=== PATIENT | male | born 1970 | race Two or more races ===

== ENCOUNTER 2018-01-02 21:19 | Observation (INO) | payer SELFPAY ==
[2018-01-02 21:27] VITALS: BP 138/84; PULSE 95; RESP 18; TEMP 98.9; O2SAT 98
--- NOTE | 2018-01-02 21:34 | PD ---
HPI Chief Complaint: Chest Pain Time Seen by Provider: 21:32 Travel History International Travel<30 days: No Contact w/Intl Traveler<30days: No Traveled to known affect area: No History of Present Illness HPI Patient presents complaining of a substernal chest pressure radiating towards his left shoulder, associated with some chest heaviness with an onset at approximately 20 minutes prior to arrival. Currently the chest pressure is rated as an 8 out of 10, associated with some sensation of shortness of breath due to the heaviness sensation. Patient denies any alleviating or aggravating factors. Patient denies any associated factors such as fever, rash, cough, runny nose, sore throat, nausea, vomiting, diarrhea, neck pain, back pain, flank pain, abdominal pain, hematuria/urgency/frequency/dysuria. No known drug allergy Past medical history significant for syncope of unknown origin, chest pain of unknown origin, hypertension, claustrophobia. Cardiac risk factors father and grandfather family history of NE in their 50s, patient denies ever smoking. PFSH Past Medical History Heart Rhythm Problems: No Cardiac Catheterization: No Cardiovascular Problems: Yes High Cholesterol: No Chest Pain: Yes Congestive Heart Failure: No Diabetes: No Diminished Hearing: No Hypertension: Yes Immunizations Current: Yes Past Surgical History Coronary Artery Bypass Graft: No Other Surgery: Yes (LEFT WRIST, RIGHT KNEE) Family History Family Myocardial Infarction: Yes (GRANDFATHER) Social History Alcohol Use: No Tobacco Use: No Substance Use: No Allergies-Medications (Allergen,Severity, Reaction): Coded Allergies: No Known Allergies (Unverified Adverse Reaction, Unknown, 01/02/18) Reported Meds & Prescriptions Reported Meds & Active Scripts Active Reported Aspirin 81 Low Dose (Aspirin) 81 Mg Chew 81 Mg CHEW DAILY Review of Systems General / Constitutional: No: Fever Eyes: No: Visual changes HENT: No: Headaches Cardiovascular: Positive: Chest Pain or Discomfort Respiratory: No: Shortness of Breath Gastrointestinal: No: Abdominal Pain Genitourinary: No: Dysuria Musculoskeletal: No: Pain Skin: No Rash Neurologic: No: Weakness Psychiatric: No: Depression Endocrine: No: Polydipsia Hematologic/Lymphatic: No: Easy Bruising Physical Exam Narrative GENERAL: SKIN: Warm and dry. HEAD: Atraumatic. Normocephalic. EYES: Pupils equal and round. No scleral icterus. No injection or drainage. ENT: No nasal bleeding or discharge. Mucous membranes pink and moist. NECK: Trachea midline. No JVD. CARDIOVASCULAR: Regular rate and rhythm. RESPIRATORY: No accessory muscle use. Clear to auscultation. Breath sounds equal bilaterally. GASTROINTESTINAL: Abdomen soft, non-tender, nondistended. MUSCULOSKELETAL: Extremities without clubbing, cyanosis, or edema. No obvious deformities. NEUROLOGICAL: Awake and alert. No obvious cranial nerve deficits. Motor grossly within normal limits. Five out of 5 muscle strength in the arms and legs. Normal speech. PSYCHIATRIC: Appropriate mood and affect; insight and judgment normal. Data Data Last Documented VS Vital Signs Date Time Temp Pulse Resp B/P (MAP) Pulse Ox O2 Delivery O2 Flow Rate FiO2 01/02/18 22:13 18 97 Room Air 01/02/18 21:27 98.9 95 138/84 (102) Orders Orders Electrocardiogram (01/02/18 21:40) B-Type Natriuretic Peptide (01/02/18 21:40) Ckmb (Isoenzyme) Profile (01/02/18 21:40) Complete Blood Count With Diff (01/02/18 21:40) Comprehensive Metabolic Panel (01/02/18 21:40) D-Dimer (01/02/18 21:40) Prothrombin Time / Inr (Pt) (01/02/18 21:40) Act Partial Throm Time (Ptt) (01/02/18 21:40) Troponin I (01/02/18 21:40) Lipase (01/02/18 21:40) Chest, Single Ap (01/02/18 21:40) Ecg Monitoring (01/02/18 21:40) Bilateral Bp Monitoring (01/02/18 21:40) Iv Access Insert/Monitor (01/02/18 21:40) Oximetry (01/02/18 21:40) Aspirin Chew (Aspirin Chew) (01/02/18 21:45) Morphine Inj (Morphine Inj) (01/02/18 21:45) Nitroglycerin 2% Oint (Nitroglycerin 2% (01/02/18 21:45) Sodium Chlorid 0.9% 500 Ml Inj (Ns 500 M (01/02/18 21:45) CKMB (01/02/18 22:00) CKMB% (01/02/18 22:00) Labs Laboratory Tests Test 01/02/18 22:00 White Blood Count 10.0 TH/MM3 Red Blood Count 5.59 MIL/MM3 Hemoglobin 14.9 GM/DL Hematocrit 44.3 % Mean Corpuscular Volume 79.2 FL Mean Corpuscular Hemoglobin 26.6 PG Mean Corpuscular Hemoglobin Concent 33.6 % Red Cell Distribution Width 13.8 % Platelet Count 252 TH/MM3 Mean Platelet Volume 9.3 FL Neutrophils (%) (Auto) 59.7 % Lymphocytes (%) (Auto) 29.0 % Monocytes (%) (Auto) 8.0 % Eosinophils (%) (Auto) 2.5 % Basophils (%) (Auto) 0.8 % Neutrophils # (Auto) 6.0 TH/MM3 Lymphocytes # (Auto) 2.9 TH/MM3 Monocytes # (Auto) 0.8 TH/MM3 Eosinophils # (Auto) 0.2 TH/MM3 Basophils # (Auto) 0.1 TH/MM3 CBC Comment DIFF FINAL Differential Comment Prothrombin Time 11.0 SEC Prothromb Time International Ratio 1.1 RATIO Activated Partial Thromboplast Time 28.1 SEC D-Dimer Quantitative (PE/DVT) LESS THAN 0.19 MG/L FEU Blood Urea Nitrogen 14 MG/DL Creatinine 1.02 MG/DL Random Glucose 104 MG/DL Total Protein 8.6 GM/DL Albumin 3.9 GM/DL Calcium Level 8.9 MG/DL Alkaline Phosphatase 96 U/L Aspartate Amino Transf (AST/SGOT) 31 U/L Alanine Aminotransferase (ALT/SGPT) 32 U/L Total Bilirubin 0.6 MG/DL Sodium Level 141 MEQ/L Potassium Level 4.1 MEQ/L Chloride Level 106 MEQ/L Carbon Dioxide Level 25.3 MEQ/L Anion Gap 10 MEQ/L Estimat Glomerular Filtration Rate 79 ML/MIN Total Creatine Kinase 139 U/L Creatine Kinase MB LESS THAN 0.5 NG/ML Troponin I LESS THAN 0.02 NG/ML B-Type Natriuretic Peptide LESS THAN 2 PG/ML Lipase 81 U/L MDM Medical Decision Making Medical Screen Exam Complete: Yes Emergency Medical Condition: Yes Medical Record Reviewed: Yes Interpretation(s) Pulse ox shows excellent Pleth wave, pulse ox reading on room air of 96-100 which is within normal limits and does not show any evidence of hypoxemia EKG shows normal sinus rhythm, 89 bpm, some mild intraventricular conduction delay but without evidence of bundle branch block. No evidence of any ST elevation NE pattern Differential Diagnosis STEMI versus non-STEMI versus pneumonia versus pulmonary embolus versus pneumothorax Narrative Course CBC shows no leukocytosis, no anemia, normal platelet count, no left shift Chest x-ray read by radiologist as no acute findings in the chest Electrolytes are within normal limits, normal kidney liver and pancreatic functions. First set of cardiac enzymes negative, negative beta natruretic peptide. Diagnosis Primary Impression: Chest pain rule out NE Keron Queen MD January 02, 2018 21:34
[2018-01-02] MEDS ORDERED: NITROGLYCERIN 2% OINT 1 GM PACKET TOP ONE (21:45)
[2018-01-02] MEDS ORDERED: SODIUM CHLORID 0.9% 500 ML INJ 500 ML IV ONE (21:45)
[2018-01-02] MEDS ORDERED: MORPHINE SULFATE 4 MG/ML INJ IV PUSH ONE (21:45)
[2018-01-02] MEDS ORDERED: ASPIRIN 81 MG CHEW TAB PO ONE ×2 (21:45→23:00)
[2018-01-02 21:55] VITALS: BP 121/78; PULSE 80
[2018-01-02 22:13] VITALS: RESP 18; O2SAT 97
[2018-01-02 22:16] LABS: BASOPHIL # 0.1 TH/MM3 (0-0.2); BASOPHIL % 0.8 % (0.0-2.0); EOSINOPHIL # 0.2 TH/MM3 (0-0.4); EOSINOPHIL % 2.5 % (0.0-4.0); HEMATOCRIT 44.3 % (39.0-51.0); HEMOGLOBIN 14.9 GM/DL (13.0-17.0); LYMPHOCYTE # 2.9 TH/MM3 (1.0-4.8); MEAN CELL VOLUME 79.2 FL (80.0-100.0); MEAN CORPUSCULAR HEMOGLOBIN 26.6 PG (27.0-34.0); MEAN CORPUSCULAR HGB CONC 33.6 % (32.0-36.0); MEAN PLATELET VOLUME 9.3 FL (7.0-11.0); MONOCYTE # 0.8 TH/MM3 (0-0.9); NEUT % 59.7 % (16.0-70.0); PLATELET COUNT 252 TH/MM3 (150-450); RED BLOOD COUNT 5.59 MIL/MM3 (4.50-5.90); RED CELL DISTRIBUTION WIDTH 13.8 % (11.6-17.2)
--- NOTE | 2018-01-02 22:16 | RADRPT ---
EXAM DATE: 01/02/2018 10:13 PM EDT AGE/SEX: 47 years / Male INDICATIONS: Chest pain for one day. CLINICAL DATA: This is the patient's initial encounter. Patient reports that signs and symptoms have been present for 1 day and indicates a pain score of 8/10. MEDICAL/SURGICAL HISTORY: None. None. COMPARISON: [facility] 06/05/2016.. FINDINGS: A single AP view of the chest demonstrates the lungs to be symmetrically aerated without evidence of mass, infiltrate or effusion. There is a thin horizontal linear opacity in the lower lateral left kai ng, similar in appearance to prior chest x-ray in 2016, characteristic of focal scarring. The cardiom ediastinal contours are unremarkable. Osseous structures are intact. CONCLUSION: No acute findings in the chest. Electronically signed by: Kolby Kennedy MD 01/02/2018 10:15 PM EDT
[2018-01-02 22:30] VITALS: BP 121/78; PULSE 82; RESP 18; O2SAT 96
[2018-01-02 22:31] LABS: ALBUMIN 3.9 GM/DL (3.4-5.0); ALT (GPT) 32 U/L (12-78); BICARBONATE 25.3 MEQ/L (21.0-32.0); BLOOD UREA NITROGEN 14 MG/DL (7-18); CALCIUM 8.9 MG/DL (8.5-10.1); CHLORIDE 106 MEQ/L (98-107); CREATININE 1.02 MG/DL (0.60-1.30); GLOMERULAR FILTRATION RATE 79 ML/MIN (>89); GLUCOSE,RANDOM 104 MG/DL (74-106); SODIUM (NA) 141 MEQ/L (136-145)
[2018-01-02 22:35] LABS: ALKALINE PHOSPHATASE 96 U/L (45-117); AST (GOT) 31 U/L (15-37); TOTAL BILIRUBIN ADULT 0.6 MG/DL (0.2-1.0); TOTAL PROTEIN 8.6 GM/DL (6.4-8.2); TROPONIN I LESS THAN 0.02 NG/ML (0.02-0.05)
[2018-01-02] MEDS ORDERED: ASPI1CHW4 CHEW (22:35)
[2018-01-02 22:41] LABS: INTERNATIONAL NORMALIZED RATIO 1.1 RATIO
[2018-01-02 22:42] LABS: D-DIMER LESS THAN 0.19 MG/L FEU (0.00-0.50)
[2018-01-02] MEDS ORDERED: NITROGLYCERIN 0.4 MG SL 25 TABS/BTL SL PRN (23:00)
[2018-01-02] MEDS ORDERED: SODIUM CHLORIDE 0.9% FLUSH 10 ML FLUSH IV FLUSH PRN (23:00)
[2018-01-02] MEDS ORDERED: ONDANSETRON HCL 4 MG/2 ML VIAL IV PUSH PRN (23:00)
[2018-01-02 23:30] VITALS: BP 137/92; PULSE 78; RESP 16; O2SAT 95
[2018-01-03 01:00] VITALS: BP 105/63; PULSE 66; RESP 16; O2SAT 97
[2018-01-03 03:30] VITALS: BP 109/61; PULSE 64; RESP 16; O2SAT 96
[2018-01-03 05:25] VITALS: BP_SYST 104; BP_SYST 109; BP_DIAS 61; BP_DIAS 69; PULSE 62; PULSE 64; RESP 18; O2SAT 96
[2018-01-03 05:50] VITALS: BP 107/71; PULSE 62; RESP 16; TEMP 97.8; O2SAT 98
[2018-01-03 08:56] VITALS: BP 105/56; PULSE 72; RESP 18; TEMP 97.9; O2SAT 97
[2018-01-03] MEDS ORDERED: FAMOTIDINE 20 MG TAB PO SCH (09:00)
[2018-01-03] MEDS ORDERED: SODIUM CHLORIDE 0.9% FLUSH 10 ML FLUSH IV FLUSH SCH (09:00)
--- NOTE | 2018-01-03 09:03 | HHI.HP ---
HPI Primary Care Physician No Primary Care Physician Chief Complaint Chest pain History of Present Illness This is a 47-year-old male the presents to ED via private vehicle to be evaluated for chest discomfort. History of hypertension but states he has not taken medication for year and a half. States he has been having left-sided chest discomfort intermittently for at least a couple years. He had a nonischemic stress test at this facility 2016. States he is continue to have it. States only happens with stressful situation. Has never happen with exertion. States when it occurs usually last a couple minutes. He states that for at least 1 or 2 times a month. Yesterday was short of breath with it. Does not usually get short of breath. Denied nausea and diaphoresis. Denies recent illness. Currently denies chest discomfort. Review of Systems General: Patient denies fevers, chills, and recent travel. HEENT: Patient denies headache, sore throat, difficulty swallowing. Cardiovascular: Has the chest discomfort as mentioned above. Denies sensation of heart beating rapidly or irregularly. No syncope. Respiratory: Occasional shortness of breath. Denies inspirational chest discomfort. Denies coughing wheezing or hemoptysis. GI: Patient denies nausea, vomiting, diarrhea, abdominal pain, bloody stools. Musculoskeletal: Patient denies joint pain or edema. Denies calf pain or edema. Neurovascular: Patient denies numbness, tingling, weakness in extremities. Denies headache. Endocrine: Denies polyuria and polydipsia. Hematologic: Denies easy bruising. Skin: Denies rash or itching. Past Family Social History Allergies: Coded Allergies: No Known Allergies (Unverified Allergy, Unknown, 01/02/18) Past Medical History Hypertension but states he has not taken medicine for year and a half. Denies hyperlipidemia, diabetes, and CAD. Lifetime non-smoker. Past Surgical History Left wrist and right knee. Reported Medications Reported Meds & Active Scripts Active Reported Aspirin 81 Low Dose (Aspirin) 81 Mg Chew 81 Mg CHEW DAILY Active Ordered Medications Current Medications Medications (Trade) Dose Ordered Sig/Patience Route Start Time Stop Time Status Last Admin (NS Flush) 2 ml UNSCH PRN IV FLUSH 01/02/18 23:00 (NS Flush) 2 ml BID IV FLUSH 01/03/18 09:00 01/03/18 08:29 (Zofran Inj) 4 mg Q6H PRN IV PUSH 5/25/18 23:00 (Pepcid) 20 mg BID PO 01/03/18 09:00 01/03/18 08:28 (Nitrostat Sl) 0.4 mg Q5M PRN SL 01/02/18 23:00 Family History Denies family history of CAD. Social History Lifetime non-smoker. Denies alcohol or illicit drug use. Physical Exam Vital Signs Vital Signs Date Time Temp Pulse Resp B/P (MAP) Pulse Ox O2 Delivery O2 Flow Rate FiO2 01/03/18 08:56 97.9 72 18 105/56 (72) 97 01/03/18 06:00 01/03/18 05:50 97.8 62 16 107/71 (83) 98 01/03/18 05:25 62 18 104/69 (81) 96 Room Air 01/03/18 03:30 64 16 109/61 (77) 96 Room Air 01/03/18 01:00 66 16 105/63 (77) 97 Room Air 01/02/18 23:30 78 16 137/92 (107) 95 Room Air 01/02/18 22:30 82 18 121/78 (92) 96 Room Air 01/02/18 22:13 18 97 Room Air 01/02/18 21:55 80 121/78 (92) 01/02/18 21:27 98.9 95 18 138/84 (102) 98 Physical Exam GENERAL: This is a well-nourished, well-developed patient, in no apparent distress. Patient speaks in clear complete sentences. Patient is pleasant. HEENT: Head is atraumatic and normocephalic. Neck is supple without lymphadenopathy and trachea is midline. No JVD or carotid bruits. CARDIOVASCULAR: Regular rate and rhythm without murmurs, gallops, or rubs. RESPIRATORY: Clear to auscultation. Breath sounds equal bilaterally. No wheezes , rales, or rhonchi. Chest wall is nontender. No use of accessory muscles. GASTROINTESTINAL: Abdomen is nontender, nondistended. Abdomen soft. No obvious pulsatile mass or bruit. No CVA tenderness. Strong femoral pulses bilaterally. Normal bowel sounds in all quadrants. MUSCULOSKELETAL: Patient is moving upper and lower extremities freely. No calf tenderness or edema, no Homans sign. Strong pulses in upper and lower extremities. NEUROLOGICAL: Patient is alert and oriented. Cranial nerves 2-12 are grossly intact. No focal deficits and speech is clear. SKIN: No rash and turgor is normal. Laboratory Laboratory Tests Test 01/02/18 22:00 01/03/18 01:11 01/03/18 05:11 White Blood Count 10.0 Red Blood Count 5.59 Hemoglobin 14.9 Hematocrit 44.3 Mean Corpuscular Volume 79.2 Mean Corpuscular Hemoglobin 26.6 Mean Corpuscular Hemoglobin Concent 33.6 Red Cell Distribution Width 13.8 Platelet Count 252 Mean Platelet Volume 9.3 Neutrophils (%) (Auto) 59.7 Lymphocytes (%) (Auto) 29.0 Monocytes (%) (Auto) 8.0 Eosinophils (%) (Auto) 2.5 Basophils (%) (Auto) 0.8 Neutrophils # (Auto) 6.0 Lymphocytes # (Auto) 2.9 Monocytes # (Auto) 0.8 Eosinophils # (Auto) 0.2 Basophils # (Auto) 0.1 CBC Comment DIFF FINAL Differential Comment Prothrombin Time 11.0 Prothromb Time International Ratio 1.1 Activated Partial Thromboplast Time 28.1 D-Dimer Quantitative (PE/DVT) LESS THAN 0.19 Blood Urea Nitrogen 14 Creatinine 1.02 Random Glucose 104 Total Protein 8.6 Albumin 3.9 Calcium Level 8.9 Alkaline Phosphatase 96 Aspartate Amino Transf (AST/SGOT) 31 Alanine Aminotransferase (ALT/SGPT) 32 Total Bilirubin 0.6 Sodium Level 141 Potassium Level 4.1 Chloride Level 106 Carbon Dioxide Level 25.3 Anion Gap 10 Estimat Glomerular Filtration Rate 79 Total Creatine Kinase 139 Creatine Kinase MB LESS THAN 0.5 Troponin I LESS THAN 0.02 LESS THAN 0.02 LESS THAN 0.02 B-Type Natriuretic Peptide LESS THAN 2 Lipase 81 Result Diagram: 01/02/18219901/02/182199 Imaging Last 48 hours Impressions Chest X-Ray 01/02/182139 Signed Impressions: CONCLUSION: No acute findings in the chest. Course EKGs are sinus rhythm without significant ST segment depressions or elevations. Caprini VTE Risk Assessment Caprini VTE Risk Assessment: No/Low Risk (score <= 1) Caprini Risk Assessment Model Point Value = 1 Point Value = 2 Point Value = 3 Point Value = 5 Age 41-60 Minor surgery BMI > 25 kg/m2 Swollen legs Varicose veins or History of unexplained or recurrent spontaneous Oral contraceptives or hormone replacement Sepsis (< 1 month) Serious lung disease, including pneumonia (< 1 month) Abnormal pulmonary function Acute myocardial infarction Congestive heart failure (< 1 month) History of inflammatory bowel disease Medical patient at bed rest Age 61-74 Arthroscopic surgery Major open surgery (> 45 min) Laparoscopic surgery (> 45 min) Malignancy Confined to bed (> 72 hours) Immobilizing plaster cast Central venous access Age >= 75 History of VTE Family history of VTE Factor V Leiden Prothrombin [id number] Lupus anticoagulant Anticardiolipin antibodies Elevated serum homocysteine Heparin-induced thrombocytopenia Other congenital or acquired thrombophilia Stroke (< 1 month) Elective arthroplasty Hip, pelvis, or leg fracture Acute spinal cord injury (< 1 month) Prophylaxis Regimen Total Risk Factor Score Risk Level Prophylaxis Regimen 0-1 Low Early ambulation 2 Moderate Order ONE of the following: *Sequential Compression Device (SCD) *Heparin 5000 units SQ BID 3-4 Higher Order ONE of the following medications: *Heparin 5000 units SQ TID *Enoxaparin/Lovenox 40 mg SQ daily (WT < 150 kg, CrCl > 30 mL/min) *Enoxaparin/Lovenox 30 mg SQ daily (WT < 150 kg, CrCl > 10-29 mL/min) *Enoxaparin/Lovenox 30 mg SQ BID (WT < 150 kg, CrCl > 30 mL/min) AND/OR *Sequential Compression Device (SCD) 5 or more Highest Order ONE of the following medications: *Heparin 5000 units SQ TID (Preferred with Epidurals) *Enoxaparin/Lovenox 40 mg SQ daily (WT < 150 kg, CrCl > 30 mL/min) *Enoxaparin/Lovenox 30 mg SQ daily (WT < 150 kg, CrCl > 10-29 mL/min) *Enoxaparin/Lovenox 30 mg SQ BID (WT < 150 kg, CrCl > 30 mL/min) AND *Sequential Compression Device (SCD) Assessment and Plan Assessment and Plan * Chest pain: Patient has had serial cardiac enzymes and EKGs for ruling out purposes. He will be seen by Dr. Shafer of cardiology in the chest pain center. He will undergo a Christ protocol ETT. Patient will be discharged home if the stress test is nonischemic with instructions to follow-up with PCP. Return to ED for interval issues. Patient is stable at this time. He is agreeable to this plan. Roshan Holt January 03, 2018 09:03
--- NOTE | 2018-01-03 10:06 | TR ---
Date Performed: 01/03/2018 Time Performed: 09:19:14 DOCTOR: Micheal Shafer DRUG LIST: CLINICAL HISTORY: REASON FOR TEST: CHEST PAIN REASON FOR ENDING: OBSERVATION: CONCLUSION: BEKAH PROTOCOL. DEVELOPED CP WHEN INITIALLY STANDING ON THE TREADMILL, SYMPTOMS DID NOT WORSEN DURING THE STRESS TEST.Maximum LH=773 % Max HR Achieved=87.0% Total Exercise Time=8:11 COMMENTS: Conclusion: Normal treadmill exercise. No evidence of ischemia.
--- NOTE | 2018-01-03 10:16 | HHI.DCPOC ---
Discharge Care Plan Diagnosis: (1) Chest pain Goals to Promote Your Health * To prevent worsening of your condition and complications * To maintain your health at the optimal level Directions to Meet Your Goals Take your medications as prescribed Follow your dietary instruction Follow activity as directed Keep your appointments as scheduled Take your immunizations and boosters as scheduled If your symptoms worsen call your PCP, if no PCP go to Urgent Care Center or Emergency Room Smoking is Dangerous to Your Health. Avoid second hand smoke Call the 24-hour hour crisis hotline for domestic abuse at Roshan Holt January 03, 2018 10:16
--- NOTE | 2018-01-03 15:44 | EKG ---
Date Performed: 01/03/2018 Time Performed: 05:13:11 PTAGE: 47 years EKG: Sinus rhythm NORMAL ECG PREVIOUS TRACING : 01/03/2018 01.13 Since previous tracing, no significant change noted DOCTOR: Micheal Shafer Interpretating Date/Time 01/03/2018 15:43:18
--- NOTE | 2018-01-03 15:46 | EKG ---
Date Performed: 01/03/2018 Time Performed: 01:13:06 PTAGE: 47 years EKG: Sinus rhythm NORMAL ECG PREVIOUS TRACING : 06/05/2016 19.57 Since previous tracing, no significant change noted DOCTOR: Micheal Shafer Interpretating Date/Time 01/03/2018 15:44:58
--- NOTE | 2018-01-03 15:49 | EKG ---
Date Performed: 01/02/2018 Time Performed: 21:43:56 PTAGE: 47 years EKG: Sinus rhythm MODERATE INTRAVENTRICULAR CONDUCTION DELAY MODERATE VOLTAGE CRITERIA FOR LVH, CONSIDER NORMAL VARIAN T BORDERLINE ECG Since PREVIOUS TRACING , no significant change noted DOCTOR: Micheal Shafer Interpretating Date/Time 01/03/2018 15:47:51
== END 2018-01-03 11:38 | disposition home or self-care (01) ==
LOC: NEPC 21:19 → NEDA 22:58 → NEPHCDU 01-03 05:35
PROVIDERS: ADMIT Internal Medicine Interventional Cardiology; ATTEND Internal Medicine Interventional Cardiology
DX: R07.89 Other chest pain (principal); I10 Essential (primary) hypertension; R06.02 Shortness of breath
CPT/HCPCS: 71045; 80053; 82550; 82552; 83690; 83880; 84484; 85025; 85379; 85610; 85730; 93005; 93017; 96361; 96374; 99285; G0378; J2270; J7040